=== PATIENT | male | born 1985 | race Caucasian/White ===

== ENCOUNTER 2018-01-23 17:05 | Emergency (ER) | payer OTHER ==
[~2018-01-23] VITALS: Ht 188 cm; Wt 122.5 kg
[~2018-01-23 17:05] MED LIST: CEPH500 PO; CETI5 PO; CYCL10 PO; Crutch1 EACH MISC; ESCI20 PO; HYDACE5 PO; IBUP200 PO; IBUP600 PO; IBUP800 PO; MECL25 PO; NAPR500 PO; OXYACE5T PO; PENVK500 PO; Percocet 5-3251 EACH PO; RXHYDACE PO; SULTRIDS PO; TOBR.3OPSO OP; TRAM50 PO; TYLENOL AND MOTRIN
[2018-01-23] MEDS ORDERED: STELARA (17:36)
[2018-01-23] MEDS ORDERED: IBUP600 PO (18:24)
== END 2018-01-23 18:25 | disposition home or self-care (01) ==
LOC: ER 17:05
DX: M25.511 Pain in right shoulder (principal); M79.644 Pain in right finger(s); Z88.5 Allergy status to narcotic agent; Z88.8 Allergy status to other drugs, medicaments and biological substances
CPT/HCPCS: 73030; 73140; 99283

== ENCOUNTER 2018-05-06 09:27 | Emergency (ER) | payer OTHER ==
[~2018-05-06] VITALS: Ht 190.5 cm; Wt 125.6 kg
[~2018-05-06 09:27] MED LIST changes: +STELARA
[2018-05-06 10:22] LABS: BASOPHILS ABSOLUTE AUTO 0.05 K/mm3 (0.00-0.23); BASOPHILS PERCENT AUTO 0 % (0-2); EOSINOPHILS ABSOLUTE AUTO 0.34 K/mm3 (0.00-0.68); EOSINOPHILS PERCENT AUTO 3 % (0-6); Hematocrit 49.4 % (37.0-53.0); Hemoglobin 17.3 g/dL (13.5-17.5); IMMATURE GRAN ABSOLUTE AUTO 0.04 K/mm3 (0.00-0.10); IMMATURE GRAN PERCENT AUTO 0 % (0-1); LYMPHOCYTES ABSOLUTE AUTO 1.37 K/mm3 (0.84-5.20); LYMPHOCYTES PERCENT AUTO 12 % (21-46); MONOCYTES ABSOLUTE AUTO 0.83 K/mm3 (0.16-1.47); MONOCYTES PERCENT AUTO 7 % (4-13); Mean Corpuscular HGB 27.4 pg (26.0-34.0); Mean Corpuscular Volume 78 fL (80-100); Mean Platelet Volume 10.5 fL (9.1-12.4); NEUTROPHILS ABSOLUTE AUTO 8.55 K/mm3 (1.96-9.15); NEUTROPHILS PERCENT AUTO 77 % (41-73); Platelet Count 308 K/mm3 (150-400); RDW Coefficient Variation 13.2 % (11.7-14.2); RDW Standard Deviation 36.5 fL (35.1-46.3); Red Blood Cell Count 6.31 M/mm3 (4.30-5.90); White Blood Cell Count 11.18 K/mm3 (4.00-11.30)
[2018-05-06 10:28] LABS: Alanine Aminotransfer (ALT/SGP 158 U/L (12-78); Albumin, Blood 4.1 g/dL (3.4-5.0); Alk Phos 90 U/L (50-136); Anion Gap 7 mmol/L (6-16); Aspartate Aminotrans (AST/SGOT 97 U/L (12-37); Bilirubin, Total 3.2 mg/dL (0.1-1.0); Blood Urea Nitrogen 12 mg/dL (8-24); Bun/Creatinine Ratio 10.7 (12.0-20.0); CO2, Blood 30 mmol/L (21-32); Calcium, Blood 9.6 mg/dL (8.5-10.1); Chloride, Blood 106 mmol/L (98-108); Creatinine, Blood 1.12 mg/dL (0.60-1.20); Glomerular Filtration Rate >60 (60-); Glucose, Blood 114 mg/dL (70-99); Potassium, Blood 3.5 mmol/L (3.5-5.5); Sodium, Blood 143 mmol/L (136-145); Total Protein, Blood 8.1 g/dL (6.4-8.2)
== END 2018-05-06 14:24 | disposition short-term general hospital (02) ==
LOC: ER 09:27
PROVIDERS: Emergency Medicine
DX: K85.10 Biliary acute pancreatitis without necrosis or infection (principal); Z88.5 Allergy status to narcotic agent; Z88.8 Allergy status to other drugs, medicaments and biological substances
CPT/HCPCS: 36415; 74176; 80053; 83690; 85025; 96361; 96374; 96375; 96376; 99285; C9113; J2405; J3010; J7030

== ENCOUNTER 2018-11-27 17:33 | Emergency (ER) | payer OTHER ==
[~2018-11-27] VITALS: Ht 188 cm; Wt 134.3 kg
== END 2018-11-27 18:55 | disposition home or self-care (01) ==
LOC: ER 17:33
DX: S20.212A Contusion of left front wall of thorax, initial encounter (principal); M54.5 Low back pain; W18.30XA Fall on same level, unspecified, initial encounter; Z88.8 Allergy status to other drugs, medicaments and biological substances; Z88.6 Allergy status to analgesic agent
CPT/HCPCS: 71101; 72220; 99283-25

== ENCOUNTER 2019-05-14 20:58 | Emergency (ER) | payer OTHER ==
[~2019-05-14] VITALS: Ht 188 cm; Wt 142.4 kg
== END 2019-05-14 22:48 | disposition home or self-care (01) ==
LOC: ER 20:58
DX: S86.911A Strain of unspecified muscle(s) and tendon(s) at lower leg level, right leg, initial encounter (principal); Z88.8 Allergy status to other drugs, medicaments and biological substances; X58.XXXA Exposure to other specified factors, initial encounter
CPT/HCPCS: 99282

== ENCOUNTER 2019-05-27 09:44 | Emergency (ER) | payer OTHER ==
[~2019-05-27] VITALS: Ht 182.9 cm; Wt 86.2 kg
== END 2019-05-27 10:56 | disposition home or self-care (01) ==
LOC: ER 09:44
DX: S90.32XA Contusion of left foot, initial encounter (principal); W22.8XXA Striking against or struck by other objects, initial encounter; Z88.6 Allergy status to analgesic agent; Z88.8 Allergy status to other drugs, medicaments and biological substances
CPT/HCPCS: 29515; 73610; 73630; 99283-25

== ENCOUNTER 2019-06-13 20:30 | Emergency (ER) | payer OTHER ==
[~2019-06-13] VITALS: Ht 190.5 cm; Wt 141.1 kg
[2019-06-13] MEDS ORDERED: IBUP800 PO (21:48)
[2019-06-13] MEDS ORDERED: Robaxin-750750 MG PO (21:48)
== END 2019-06-13 21:56 | disposition home or self-care (01) ==
LOC: ER 20:30
DX: M54.5 Low back pain (principal); Z88.8 Allergy status to other drugs, medicaments and biological substances
CPT/HCPCS: 72100; 99283-25

== ENCOUNTER 2020-07-30 18:02 | Emergency (ER) | payer OTHER ==
[~2020-07-30] VITALS: Ht 188 cm; Wt 130.6 kg
[~2020-07-30 18:02] MED LIST changes: +Robaxin-750750 MG PO
== END 2020-07-30 19:10 | disposition home or self-care (01) ==
LOC: ER 18:02
DX: M25.561 Pain in right knee (principal); R22.41 Localized swelling, mass and lump, right lower limb; Z88.8 Allergy status to other drugs, medicaments and biological substances; Z88.6 Allergy status to analgesic agent; Z79.899 Other long term (current) drug therapy
CPT/HCPCS: 73564; 99283-25

== ENCOUNTER 2020-12-26 10:46 | Day surgery (SDC) | payer OTHER ==
[~2020-12-26] VITALS: Ht 188 cm; Wt 141.9 kg
[~2020-12-26 10:46] MED LIST changes: +Adipex-P37.5 MG PO; +Amlodipine Besy10 MG PO; +LOSARTAN POTAS100 MG PO
[2020-12-26] MEDS ORDERED: BRINTELLIX20 MG PO (11:36)
--- NOTE | 2020-12-26 13:26 | NUR ---
12/26/20 1326 Jamal Gr PT NOTED TO HAVE SEVERAL SMALL PLAQUES OF PSORIASIS ON HIS RIGHT LOWER EXTREMITY. NO OPEN SKIN NOTED.
--- NOTE | 2020-12-26 15:41 | NUR ---
12/26/20 1541 Larissa Dunaway RECIEVED REPORT FROM LEANNA PEACE. PT RATES PAIN 6/10 IN RIGHT KNEE. AFTER PT TOLERATED BE CRACKERS WELL PT GIVEN 1 PO NORCO ORDERED. PT STATES PAIN IS WORSE IN IV THAN KNEE AND WISHES TO HAVE HIS IV REMOVED. PT STATES HE IS READY TO GET DRESSED. WILL ASSIST PT TO RESTROOM WELL.
== END 2020-12-26 16:00 | disposition home or self-care (01) ==
LOC: ORSCSDS 10:46
PROVIDERS: Orthopaedic Surgery
PROC: 0SBC4ZZ Excision of Right Knee Joint, Percutaneous Endoscopic Approach (ICD-10-PCS; principal; 2020-12-26 12:15)
PROC: 0JBN0ZZ Excision of Right Lower Leg Subcutaneous Tissue and Fascia, Open Approach (ICD-10-PCS; principal; 2020-12-26 12:15)
DX: S83.241A Other tear of medial meniscus, current injury, right knee, initial encounter (principal); S83.281A Other tear of lateral meniscus, current injury, right knee, initial encounter; M79.89 Other specified soft tissue disorders; I10 Essential (primary) hypertension; G47.33 Obstructive sleep apnea (adult) (pediatric); E66.01 Morbid (severe) obesity due to excess calories; Z68.39 Body mass index [BMI] 39.0-39.9, adult; K21.9 Gastro-esophageal reflux disease without esophagitis; Z79.899 Other long term (current) drug therapy
CPT/HCPCS: 88304; A9270; J0690; J1100; J1885; J2405; J2704; J2710; J2765; J3010; J7120

== ENCOUNTER 2022-02-26 10:06 | Emergency (ER) | payer OTHER ==
[~2022-02-26] VITALS: Ht 188 cm; Wt 138.3 kg
[~2022-02-26 10:06] MED LIST changes: +BRINTELLIX20 MG PO
== END 2022-02-26 10:58 | disposition home or self-care (01) ==
LOC: ER 10:06
DX: S63.92XA Sprain of unspecified part of left wrist and hand, initial encounter (principal); X58.XXXA Exposure to other specified factors, initial encounter; Z88.8 Allergy status to other drugs, medicaments and biological substances; Z88.6 Allergy status to analgesic agent; Z88.5 Allergy status to narcotic agent; Z79.899 Other long term (current) drug therapy
CPT/HCPCS: 73110; 99283-25